=== PATIENT | female | born 1945 | race African-American/Black ===

== ENCOUNTER 2024-08-25 16:17 | Inpatient (IN) | payer OTHER, MEDICARE ==
[~2024-08-25] VITALS: Ht 167.6 cm; Wt 56.5 kg
[2024-08-25 18:00] LABS: HEMATOCRIT. 31.2 % (36.0-48.0); MEAN CORPUSCULAR VOLUME 90.7 fL (81.0-99.0); MEAN PLATELET VOLUME 8.5 fl (7.4-10.4); PLATELET 301 x1000/uL (130-400); RED BLOOD CELL COUNT 3.44 mill/uL (4.2-5.4); RED CELL DISTRIBUTION WIDTH 15.2 % (11.6-14.6); WHITE BLOOD COUNT 24.6 x1000/uL (4.5-11.0)
[2024-08-25 18:03] LABS: DIFFERENTIAL COMMENT 1
[2024-08-25 18:09] LABS: CARBON DIOXIDE 28 mEq/L (21-32); CHLORIDE 104 mEq/L (98-107); POTASSIUM 3.3 mEq/L (3.5-5.1); SODIUM 145 mEq/L (136-145)
[2024-08-25 18:10] LABS: CALCIUM 8.4 mg/dL (8.7-10.4)
[2024-08-25 18:11] LABS: INR 1.3; PROTHROMBIN TIME 13.7 sec (9.6-11.0)
[2024-08-25] MEDS: SODIUM CHLORIDE 0.9% (SEPSIS BOLUS) IV ONE (18:13)
[2024-08-25] MEDS: PIPERACILLIN/TAZO 3.375G/50ML 50 ML IV ONE (18:13)
[2024-08-25 18:14] LABS: CREATININE 1.6 mg/dL (0.6-1.0)
[2024-08-25 18:15] LABS: GLUCOSE 81 mg/dL (70-105); UREA NITROGEN BLOOD 25 mg/dL (9-23)
[2024-08-25 18:16] LABS: ALANINE AMINOTRANSFERASE < 7 IU/L (10-49); ALBUMIN 3.7 g/dL (3.2-4.8); ASPARTATE AMINOTRANSFERASE 14 IU/L (<34)
[2024-08-25 18:17] LABS: BILIRUBIN DIRECT 0.3 mg/dL (<=3.0); BILIRUBIN TOTAL 0.7 mg/dL (0.1-1.0); PROTEIN TOTAL 6.8 g/dL (6.0-8.3)
[2024-08-25 18:20] LABS: TROPONIN I HIGH SENSITIVITY 74 ng/L (3.0-34)
[2024-08-25 18:25] LABS: PLATELET ESTIMATE NORMAL
[2024-08-25] MEDS: VANCOMYCIN 1G PREMIX 200 ML IV ONE (18:43)
[2024-08-25] MEDS: CIPROFLOXACIN 0.3% OPHTH SOLN 2.5ML LEFT EAR ONE (21:33)
[2024-08-25 21:34] LABS: TROPONIN I HIGH SENSITIVITY 64 ng/L (3.0-34)
[2024-08-25] MEDS ORDERED: ONDANSETRON HCL 4MG/2ML INJ IV PRN (23:45)
[2024-08-25] MEDS ORDERED: IPRATROPIUM/ALBUTEROL 0.5-3(2.5)MG/3ML NEB HHN PRN (23:45)
[2024-08-25] MEDS ORDERED: GUAIFENESIN 200MG/10ML SUGAR FREE UDC PO PRN (23:45)
[2024-08-25] MEDS ORDERED: DOCUSATE SODIUM 100MG CAPSULE PO PRN (23:45)
[2024-08-25] MEDS ORDERED: CLONIDINE 0.1MG TABLET PO PRN (23:45)
[2024-08-25] MEDS ORDERED: ACETAMINOPHEN 325MG TABLET PO PRN (23:45)
[2024-08-25] MEDS ORDERED: MAGNESIUM/ALUMINUM HYDROXIDE/SIMETHICONE 30ML UDC PO PRN (23:45)
[2024-08-25] MEDS ORDERED: FURO20TA4 PO (23:49)
[2024-08-25] MEDS ORDERED: OMEP20CA14 PO (23:49)
[2024-08-25] MEDS ORDERED: GABA-1180 PO (23:49)
[2024-08-25] MEDS ORDERED: ROSU10CA (23:49)
[2024-08-25] MEDS ORDERED: HYDR50TA39 PO (23:49)
[2024-08-25] MEDS ORDERED: AMLO5TAB88 PO (23:49)
[2024-08-25] MEDS ORDERED: MIRT-89 PO (23:49)
[2024-08-25] MEDS ORDERED: ATEN50TA PO (23:49)
[2024-08-25] MEDS ORDERED: LOSA100T33 PO (23:49)
[2024-08-26] VITALS (7 sets, daily range): BP systolic 118–134; BP diastolic 48–65; PULSE 69–77; RESP 16–19; TEMP 36.2–37.4; O2SAT 98–99
[2024-08-26] MEDS ORDERED: CEFTRIAXONE 1GM/50ML 50 ML IV SCH ×2
[2024-08-26] MEDS ORDERED: APIX5TAB PO (00:01)
[2024-08-26] MEDS: POTASSIUM CHLORIDE 20MEQ/PACKET PO NR (00:37)
[2024-08-26] MEDS: ACETAMINOPHEN 325MG TABLET PO PRN (00:38)
[2024-08-26] MEDS ORDERED: DOXYCYCLINE 100MG/100ML 100 ML IV SCH ×2 (01:00)
[2024-08-26] MEDS ORDERED: METH4TAB17 PO (01:17)
[2024-08-26] MEDS ORDERED: HYDR-4009 PO (01:17)
[2024-08-26] MEDS ORDERED: HYDROCODONE/ACETAMINOPHEN 7.5/325MG TABLET PO PRN (01:30)
[2024-08-26] MEDS ORDERED: NALOXONE HCL 0.4MG/ML VIAL IV PRN (01:30)
[2024-08-26] MEDS: SODIUM CHLORIDE 0.9% 1,000 ML IV SCH (03:28)
[2024-08-26] MEDS: DOXYCYCLINE 100MG/100ML 100 ML IV SCH (04:06)
[2024-08-26] MEDS: CEFTRIAXONE 1GM/50ML 50 ML IV SCH (04:06)
[2024-08-26] MEDS: MIRTAZAPINE 15MG TABLET PO SCH (08:24)
[2024-08-26] MEDS: ATENOLOL 50 MG TABLET PO SCH (08:24)
[2024-08-26] MEDS: METHYLPREDNISOLONE 4MG TABLET PO SCH (08:24)
[2024-08-26] MEDS: APIXABAN 5 MG TABLET PO SCH (08:24)
[2024-08-26] MEDS: FUROSEMIDE 40MG/4ML VIAL IVP SCH (08:25)
[2024-08-26 08:49] LABS: CLARITY URINE CLEAR (CLEAR); COLOR URINE YELLOW (YELLOW); GLUCOSE URINE NEGATIVE (NEGATIVE); KETONES URINE TRACE (NEGATIVE); LEUKOCYTE ESTERASE URINE 2+ (NEGATIVE); NITRITE URINE NEGATIVE (NEGATIVE); OCCULT BLOOD URINE NEGATIVE (NEGATIVE); PROTEIN URINE NEGATIVE (NEGATIVE); SPECIFIC GRAVITY URINE 1.015 (1.005-1.030)
[2024-08-26 09:11] LABS: *AMPHETAMINES SCREEN URINE NEGATIVE (NEGATIVE); *BARBITURATES SCREEN URINE NEGATIVE (NEGATIVE); *BENZODIAZEPINES SCREEN URINE NEGATIVE (NEGATIVE); *COCAINE SCREEN URINE NEGATIVE (NEGATIVE); METHADONE URINE SCREEN NEGATIVE (NEGATIVE); OPIATES URINE SCREEN PRESUMPTIVE POSITIVE (NEGATIVE); PHENCYCLIDINE URINE SCREEN NEGATIVE (NEGATIVE)
[2024-08-26 09:12] LABS: CANNABINOID URINE SCREEN NEGATIVE (NEGATIVE); ECSTASY MDMA SCREEN URINE NEGATIVE (NEGATIVE)
[2024-08-26 09:46] LABS: SQUAMOUS EPITHELIAL CELL URINE 2+ /lpf (RARE/1+)
[2024-08-26 09:49] LABS: BACTERIA URINE TRACE; RBC URINE 0-2 /hpf (0-2)
[2024-08-26 10:37] LABS: HEMOGLOBIN. 8.9 g/dL (12.0-16.0); MEAN CORPUSCULAR HEMOGLOBIN 28.9 pg (28.0-32.0); MEAN CORPUSCULAR HGB CONC 31.7 g/dL (31.0-37.0); MEAN CORPUSCULAR VOLUME 91.3 fL (81.0-99.0); MEAN PLATELET VOLUME 8.4 fl (7.4-10.4); PLATELET 264 x1000/uL (130-400); RED BLOOD CELL COUNT 3.06 mill/uL (4.2-5.4); RED CELL DISTRIBUTION WIDTH 15.3 % (11.6-14.6); WHITE BLOOD COUNT 23.1 x1000/uL (4.5-11.0)
[2024-08-26 10:40] LABS: DIFFERENTIAL COMMENT 1
[2024-08-26 10:59] LABS: CARBON DIOXIDE 27 mEq/L (21-32); CHLORIDE 106 mEq/L (98-107); SODIUM 144 mEq/L (136-145)
[2024-08-26 11:00] LABS: CALCIUM 7.7 mg/dL (8.7-10.4)
[2024-08-26 11:05] LABS: CREATININE 1.4 mg/dL (0.6-1.0); GLUCOSE 87 mg/dL (70-105); TRIGLYCERIDE 84 mg/dL (0-150); UREA NITROGEN BLOOD 22 mg/dL (9-23)
[2024-08-26 11:06] LABS: LDL CHOLESTEROL 44 mg/dL (5-100)
[2024-08-26 11:07] LABS: CHOLESTEROL 98 mg/dL (<200); HDL CHOLESTEROL 34 mg/dL (>65); PHOSPHORUS 2.9 mg/dL (2.5-4.9); T4 FREE 1.34 ng/dL (0.89-1.76); THYROID STIMULATING HORMONE 1.02 uIU/mL (0.55-4.78)
[2024-08-26 11:15] LABS: IRON 16 ug/dL (50-170)
[2024-08-26 11:18] LABS: TOTAL IRON BINDING CAPACITY 195 ug/dl (250-425)
[2024-08-26 11:25] LABS: TROPONIN I HIGH SENSITIVITY 38 ng/L (3.0-34)
[2024-08-26 15:18] LABS: ANISOCYTOSIS 1+; PLATELET ESTIMATE NORMAL
[2024-08-26 16:27] LABS: TROPONIN I HIGH SENSITIVITY 34 ng/L (3.0-34)
[2024-08-26] MEDS: ENOXAPARIN 60MG/0.6ML SYR SUBCUT SCH (17:22)
[2024-08-26] MEDS ORDERED: FAMOTIDINE 20MG TABLET PO SCH (21:00)
[2024-08-27] MEDS ORDERED: PANTOPRAZOLE SODIUM 40 MG/VIAL IV SCH (09:00)
== END 2024-08-26 20:08 | disposition short-term general hospital (02) | DRG 871 ==
LOC: ER 16:17 → 3WST 21:30 → EDBEDREQ 21:34 → EDBEDREQTM 21:34 → ENRESERV 08-26 00:47
PROVIDERS: ADMIT Hospitalist; ATTEND Hospitalist
DX: A41.9 Sepsis, unspecified organism (principal); I21.A1 Myocardial infarction type 2; R65.21 Severe sepsis with septic shock; J18.9 Pneumonia, unspecified organism; N17.9 Acute kidney failure, unspecified; I13.0 Hypertensive heart and chronic kidney disease with heart failure and stage 1 through stage 4 chronic kidney disease, or unspecified chronic kidney disease; Z20.822 Contact with and (suspected) exposure to COVID-19; I50.9 Heart failure, unspecified; F32.A Depression, unspecified; D64.9 Anemia, unspecified; N18.9 Chronic kidney disease, unspecified; I48.0 Paroxysmal atrial fibrillation; E87.6 Hypokalemia; E78.5 Hyperlipidemia, unspecified; Z87.891 Personal history of nicotine dependence; Z90.49 Acquired absence of other specified parts of digestive tract; Z79.01 Long term (current) use of anticoagulants; Z79.899 Other long term (current) drug therapy; Z55.6 Problems related to health literacy; Z86.718 Personal history of other venous thrombosis and embolism
CPT/HCPCS: 36415; 71045; 80048; 80061; 80076; 80305; 81003; 82728; 83540; 83550; 83605; 83735; 83880; 84100; 84145; 84439; 84443; 84484; 85025; 87426; 93005; 93306; 93970; 96365; 96367; 96375; 99291; J0696; J1650; J1940; J2543; J3370; J3490; J7030; J7509